=== PATIENT | female | born 1965 | race Caucasian/White ===

== ENCOUNTER 2018-05-26 12:54 | Emergency (ER) | payer MEDICARE | END 2018-05-26 15:14 | disposition left against medical advice (07) | LOC: FTE 15:14 | DX: Z53.21 Procedure and treatment not carried out due to patient leaving prior to being seen by health care provider (principal) ==

== ENCOUNTER 2018-05-26 16:47 | Emergency (ER) | payer SELFPAY, MEDICARE | END 2018-05-26 16:56 | disposition left against medical advice (07) | LOC: E/R 16:56 | DX: Z53.21 Procedure and treatment not carried out due to patient leaving prior to being seen by health care provider (principal) ==

== ENCOUNTER 2018-05-26 21:01 | Emergency (ER) | payer MEDICARE, BC | END 2018-05-26 22:45 | disposition home or self-care (01) | LOC: E/R 21:01 | DX: R53.83 Other fatigue (principal); R46.89 Other symptoms and signs involving appearance and behavior; J44.9 Chronic obstructive pulmonary disease, unspecified; E11.9 Type 2 diabetes mellitus without complications | CPT/HCPCS: 99282 ==